=== PATIENT | male | born 1990 | race Two or more races ===

== ENCOUNTER → 2024-10-11 | Outpatient (CLI) | payer OTHER, SELFPAY ==
--- NOTE | 2024-10-11 14:35 | XR_ITS ---
Examination: Thoracic spine 3 views Technique: AP lateral coned lateral upper dorsal spine 3 views Exam date and time: 02/10/2025 1511 hrs. 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 Findings: Adequate alignment thoracic vertebral bodies No acute thoracic fracture Mild diffuse thoracic disc narrowing Impression: No acute thoracic fracture
--- NOTE | 2024-10-11 14:35 | XR_ITS ---
EXAMINATION: Cervical spine, 5 views Technique: Cervical spine AP, AP odontoid, lateral, bilateral obliques, 5 views Exam date and time: October 11, 2024, 1449 hrs. Indications: Injury to the neck 5 days ago, neck pain. Findings: Adequate alignment lumbar vertebral bodies. No cervical fracture. Intact odontoid. Early degenerative disc disease C5-C6 Mild bilateral neural foraminal stenosis C5-C6 Impression: No cervical fracture
--- NOTE | 2024-10-11 14:35 | XR_ITS ---
Examination: Shoulder,right, 3 views Technique: Shoulder AP internal rotation, AP external rotation, Y view shoulder, 3 views Exam date and time :October 09, 2024 1449 hrs. Indications: Injury to the shoulder 5 days ago, shoulder pain. Findings: No shoulder fracture or dislocation No AC joint separation Impression: No shoulder fracture or dislocation
--- NOTE | 2024-10-11 14:35 | XR_ITS ---
Examination: PA lateral chest 2 views Technique: Upright PA lateral chest 2 views Exam date and time: October 11, 2024 1449 hrs. Indications: Injury to the chest 5 days ago, chest pain. Findings: No pneumothorax. Normal heart size Clavicles ribs thoracic vertebral bodies appear intact Impression: No pneumothorax pulmonary contusion or hemothorax
== END | disposition home or self-care (01) ==
PROVIDERS: PCP Family Medicine; Referring Provider Nurse Practitioner Family; Visit Provider Nurse Practitioner Family
DX: S13.4XXA Sprain of ligaments of cervical spine, initial encounter (principal); S43.401A Unspecified sprain of right shoulder joint, initial encounter; S23.3XXA Sprain of ligaments of thoracic spine, initial encounter; S20.20XA Contusion of thorax, unspecified, initial encounter; X58.XXXA Exposure to other specified factors, initial encounter
CPT/HCPCS: 71046; 72050; 72070; 73030